=== PATIENT | male | born 1995 | race Two or more races ===

== ENCOUNTER 2021-01-29 08:57 | Inpatient (IN) | payer MEDICAID, OTHER ==
[~2021-01-29] VITALS: Ht 157.5 cm; Wt 122.4 kg
[2021-01-29 10:01] LABS: HEMATOCRIT 44.3 % (41-53); HEMOGLOBIN 14.8 g/dL (13.5-17.5); LYMPHOCYTES # (AUTO) 2.1 K/uL (1.0-4.8); LYMPHOCYTES % (AUTO) 27.2 % (22.0-44.0); MEAN CORPUSCULAR HEMOGLOBIN 30.2 pg (26.0-34.0); MEAN CORPUSCULAR HGB CONC 33.5 G/dL (31.0-37.0); MEAN CORPUSCULAR VOLUME 90 fL (80-100); MONOCYTES # (AUTO) 0.5 K/uL (0.1-1.0); MONOCYTES % (AUTO) 6.9 % (2.0-9.0); NEUTROPHILS % (AUTO) 62.9 % (40.0-70.0); PLATELET COUNT (AUTO) 269 K/uL (150-450); RED BLOOD CELL COUNT(AUTO) 4.91 MIL/uL (4.50-5.90); RED CELL DISTRIBUTION WIDTH 12.8 % (11.5-14.5)
[2021-01-29 10:11] LABS: ANION GAP 7 mmol/L (8-16); CALCIUM, TOTAL 9.3 mg/dL (8.8-10.5); CARBON DIOXIDE 31 mmol/L (22-29); CHLORIDE 105 mmol/L (98-107); CREATININE 0.97 mg/dL (0.60-1.30); GLOMERULAR FILTR. RATE CALC > 60 mL/min (>60); GLUCOSE,RANDOM 98 mg/dL (70-110); POTASSIUM 3.6 mmol/L (3.5-5.1); SODIUM SERUM 143 mmol/L (136-145); UREA NITROGEN, BLOOD 9 mg/dL (7-18)
[2021-01-29 10:17] LABS: ALANINE AMINOTRANSFERASE 21 U/L (12-78); ALKALINE PHOSPHATASE 63 U/L (46-116); ASPARTATE AMINOTRANSFERASE 17 U/L (15-37); BILIRUBIN,TOTAL 0.3 mg/dL (0.1-1.0); TOTAL PROTEIN, SERUM 7.4 g/dL (6.4-8.2)
[2021-01-29 10:47] LABS: COVID AG,FIA SOURCE NASOPHARYNGEAL
[2021-01-29] MEDS ORDERED: LORazepam 1 MG TABLET PO PRN (12:00)
[2021-01-29] MEDS ORDERED: ZOLPIDEM TARTRATE 10 MG TABLET PO PRN (12:00)
[2021-01-29] MEDS ORDERED: ChlorproMAZINE HCL 100 MG TABLET PO PRN ×2 (12:15→22:15)
[2021-01-29] MEDS ORDERED: TraZODone HCL 50 MG TABLET PO PRN (12:15)
[2021-01-29 18:21] VITALS: BP 140/80
[2021-01-29] MEDS ORDERED: PROMETHAZINE HCL 25 MG TABLET PO PRN (20:45)
[2021-01-29] MEDS ORDERED: IBUPROFEN 600 MG TABLET PO PRN (20:45)
[2021-01-29] MEDS ORDERED: TUBERCULIN, PURIFIED PROTEIN DERIVATIVE 5 TU/0.1 ML SYRINGE ID ONE (20:45)
[2021-01-29] MEDS ORDERED: MAGNESIUM HYDROXIDE SUSPENSION 30 ML UDCUP PO PRN (20:45)
[2021-01-29] MEDS ORDERED: MAG HYDROX/AL HYDROX/SIMETH ES 30 ML SUSPENSION UDCUP PO PRN ×2 (20:45)
[2021-01-29] MEDS ORDERED: LOPERAMIDE HCL 2 MG CAPSULE PO PRN (20:45)
[2021-01-29] MEDS ORDERED: HydrOXYzine PAMOATE 50 MG CAPSULE PO PRN ×3 (20:45→22:15)
[2021-01-29] MEDS ORDERED: CloNIDine HCL 0.1 MG TABLET PO PRN (20:45)
[2021-01-29] MEDS ORDERED: ACETAMINOPHEN 325 MG TABLET PO PRN (20:45)
[2021-01-29] MEDS ORDERED: GuaiFENesin/D-METHORPHAN [SUGAR-FREE] 200-20MG/10 ML SYRUP UDCUP PO PRN (20:45)
[2021-01-29 20:46] VITALS: BP 130/80
[2021-01-29] MEDS: MELATONIN 5 MG TABLET PO SCH (21:29)
[2021-01-29 21:46] VITALS: BP 122/70
[2021-01-29 22:06] VITALS: BP 124/77
[2021-01-29] MEDS: CloNIDine HCL 0.1 MG TABLET PO SCH (22:18)
[2021-01-29 22:41] VITALS: BP_SYST 12; BP_SYST 124; BP_DIAS 77
[2021-01-29 23:00] VITALS: BP 127/76
[2021-01-30] VITALS (11 sets, daily range): BP systolic 96–126; BP diastolic 54–81
[2021-01-30] MEDS: CloNIDine HCL 0.1 MG TABLET PO SCH ×4 (06:00→21:23)
[2021-01-30 08:36] LABS: HEMOGLOBIN A1C 5.5 % (3.8-5.6)
[2021-01-30 08:52] LABS: CHOL/HDL RATIO 3.1 (4.2-7.3); FREE T4 (FREE THYROXINE) 0.93 ng/dL (0.76-1.46); THYROID STIMULATING HORMONE 0.28 uIU/mL (0.36-3.74)
[2021-01-30] MEDS: FLUoxetine HCL 20 MG CAPSULE PO SCH (08:58)
[2021-01-30] MEDS: THIAMINE 100 MG TABLET PO SCH ×2 (08:58→16:23)
[2021-01-30] MEDS: ARIPiprazole 5 MG TABLET PO SCH (08:58)
[2021-01-30] MEDS: OMEGA-3/DHA/EPA/FISH OIL 1,000 MG CAPSULE PO SCH (08:58)
[2021-01-30] MEDS: MULTIVITAMINS WITH MINERALS, THERAPEUTIC TABLET PO SCH (08:58)
[2021-01-30] MEDS: FOLIC ACID 1 MG TABLET PO SCH (08:58)
[2021-01-30 10:00] LABS: APPEARANCE,URINE CLEAR (CLEAR); BILIRUBIN,URINE NEGATIVE (NEGATIVE); GLUCOSE, URINE (UA) NEGATIVE (NEGATIVE); KETONES,URINE NEGATIVE (NEGATIVE); LEUKOCYTE ESTERASE ,URINE NEGATIVE (NEGATIVE); NITRATE,URINE NEGATIVE (NEGATIVE); OCCULT BLOOD,URINE NEGATIVE (NEGATIVE); PROTEIN,URINE NEGATIVE (NEGATIVE)
[2021-01-30 10:05] LABS: AMPHET/METH SCREEN,URINE NEGATIVE (NEGATIVE); BARBITURATE SCREEN, URINE NEGATIVE (NEGATIVE); BENZODIAZEPINES SCREEN,URINE NEGATIVE (NEGATIVE); CANNABINOID SCREEN,URINE POSITIVE (NEGATIVE); COCAINE SCREEN,URINE NEGATIVE (NEGATIVE); METHADONE SCREEN, URINE POSITIVE (NEGATIVE); OPIATE SCREEN,URINE NEGATIVE (NEGATIVE)
[2021-01-30 10:09] LABS: PHENCYCLIDINE SCREEN,URINE NEGATIVE (NEGATIVE)
[2021-01-30] MEDS: MELATONIN 5 MG TABLET PO SCH (20:20)
[2021-01-31 05:35] VITALS: BP 121/60
[2021-01-31 05:51] VITALS: BP 96/57
[2021-01-31] MEDS: CloNIDine HCL 0.1 MG TABLET PO SCH ×4 (05:56→21:28)
[2021-01-31] MEDS: OMEGA-3/DHA/EPA/FISH OIL 1,000 MG CAPSULE PO SCH (08:58)
[2021-01-31] MEDS: MULTIVITAMINS WITH MINERALS, THERAPEUTIC TABLET PO SCH (08:58)
[2021-01-31] MEDS: FOLIC ACID 1 MG TABLET PO SCH (08:58)
[2021-01-31] MEDS: FLUoxetine HCL 20 MG CAPSULE PO SCH (08:58)
[2021-01-31] MEDS: ARIPiprazole 5 MG TABLET PO SCH (08:58)
[2021-01-31] MEDS: METHADONE HCL 10 MG TABLET PO SCH (08:59)
[2021-01-31] MEDS: THIAMINE 100 MG TABLET PO SCH ×2 (08:59→16:32)
[2021-01-31 09:39] VITALS: BP_SYST 112; BP_SYST 119; BP_DIAS 67; BP_DIAS 72
[2021-01-31 16:00] VITALS: BP 109/70
[2021-01-31] MEDS: MELATONIN 5 MG TABLET PO SCH (20:35)
[2021-02-01 05:44] VITALS: BP 98/53
[2021-02-01] MEDS: CloNIDine HCL 0.1 MG TABLET PO SCH (06:00)
[2021-02-01] MEDS: THIAMINE 100 MG TABLET PO SCH (09:10)
[2021-02-01] MEDS: MULTIVITAMINS WITH MINERALS, THERAPEUTIC TABLET PO SCH (09:10)
[2021-02-01] MEDS: FOLIC ACID 1 MG TABLET PO SCH (09:10)
[2021-02-01] MEDS: METHADONE HCL 10 MG TABLET PO SCH (09:10)
[2021-02-01] MEDS: FLUoxetine HCL 20 MG CAPSULE PO SCH (09:10)
[2021-02-01] MEDS: ARIPiprazole 5 MG TABLET PO SCH (09:10)
[2021-02-01] MEDS: OMEGA-3/DHA/EPA/FISH OIL 1,000 MG CAPSULE PO SCH (09:10)
[2021-02-01 09:32] VITALS: BP 101/61
[2021-02-01] MEDS ORDERED: FLUO20CA36 PO (10:45)
[2021-02-01] MEDS ORDERED: OMEG-135 PO (10:45)
[2021-02-01] MEDS ORDERED: MELA5TAB40 PO ×2 (10:45→11:10)
[2021-02-01] MEDS ORDERED: ARIP5TAB37 PO (10:45)
[2021-02-01] MEDS ORDERED: FOLI0.4T6 PO (11:09)
[2021-02-01] MEDS ORDERED: THIA100T80 PO (11:10)
== END 2021-02-01 12:00 | disposition home or self-care (01) | DRG 750 ==
LOC: EMS 08:57 → 3EI 18:59
PROVIDERS: ADMIT Psychiatry & Neurology Psychiatry; ATTEND Psychiatry & Neurology Psychiatry
DX: F25.1 Schizoaffective disorder, depressive type (principal); R45.851 Suicidal ideations; F32.9 Major depressive disorder, single episode, unspecified; F17.210 Nicotine dependence, cigarettes, uncomplicated; Z20.822 Contact with and (suspected) exposure to COVID-19; F43.10 Post-traumatic stress disorder, unspecified; Z91.14 Patient's other noncompliance with medication regimen; Z55.9 Problems related to education and literacy, unspecified; Z59.9 Problem related to housing and economic circumstances, unspecified; Z65.3 Problems related to other legal circumstances
CPT/HCPCS: 80053; 80061; 80307; 81003; 83036; 84439; 84443; 85025; 86592; 99285; G0480; Q9967

== ENCOUNTER 2021-08-05 10:01 | Emergency (ER) | payer MEDICAID, OTHER ==
[~2021-08-05] VITALS: Ht 162.6 cm; Wt 63.6 kg
[~2021-08-05 10:01] MED LIST: ARIP5TAB37 PO; FLUO20CA36 PO; FOLI0.4T6 PO; MELA5TAB40 PO; OMEG-108 PO; THIA100T80 PO
[2021-08-05] MEDS ORDERED: ONDANSETRON HCL 4 MG/2 ML VIAL IVP ONE (12:45)
[2021-08-05] MEDS ORDERED: SODIUM CHLORIDE 0.9% 2,000 ML IV ONE (12:45)
[2021-08-05 14:25] LABS: BASOPHILS % (AUTO) 1.2 % (0.0-2.0); EOSINOPHILS % (AUTO) 1.1 % (1.0-6.0); HEMATOCRIT 39.5 % (41-53); HEMOGLOBIN 13.5 g/dL (13.5-17.5); LYMPHOCYTES # (AUTO) 1.9 K/uL (1.0-4.8); LYMPHOCYTES % (AUTO) 26.6 % (22.0-44.0); MEAN CORPUSCULAR HEMOGLOBIN 30.5 pg (26.0-34.0); MEAN CORPUSCULAR HGB CONC 34.1 G/dL (31.0-37.0); MEAN CORPUSCULAR VOLUME 89 fL (80-100); MONOCYTES # (AUTO) 0.5 K/uL (0.1-1.0); NEUTROPHILS # (AUTO) 4.6 K/uL (1.8-7.7); NEUTROPHILS % (AUTO) 64.1 % (40.0-70.0); PLATELET COUNT (AUTO) 282 K/uL (150-450); RED BLOOD CELL COUNT(AUTO) 4.42 MIL/uL (4.50-5.90); RED CELL DISTRIBUTION WIDTH 12.8 % (11.5-14.5)
[2021-08-05 14:33] LABS: ANION GAP 5 mmol/L (8-16); CALCIUM, TOTAL 8.5 mg/dL (8.8-10.5); CARBON DIOXIDE 30 mmol/L (22-29); CHLORIDE 108 mmol/L (98-107); CREATININE 0.87 mg/dL (0.60-1.30); GLOMERULAR FILTR. RATE CALC > 60 mL/min (>60); GLUCOSE,RANDOM 100 mg/dL (70-110); POTASSIUM 3.9 mmol/L (3.5-5.1); SODIUM SERUM 143 mmol/L (136-145); UREA NITROGEN, BLOOD 9 mg/dL (7-18)
[2021-08-05 14:39] LABS: ALANINE AMINOTRANSFERASE 16 U/L (12-78); ALBUMIN 3.1 g/dL (3.4-5.0); ALKALINE PHOSPHATASE 53 U/L (46-116); ASPARTATE AMINOTRANSFERASE 11 U/L (15-37); BILIRUBIN,TOTAL 0.3 mg/dL (0.1-1.0)
[2021-08-05] MEDS ORDERED: BUPRENORPHINE HCL/NALOXONE HCL 8-2 MG SUBLINGUAL TABLET SL ONE (15:45)
[2021-08-05 16:18] LABS: AMPHET/METH SCREEN,URINE NEGATIVE (NEGATIVE); BARBITURATE SCREEN, URINE NEGATIVE (NEGATIVE); BENZODIAZEPINES SCREEN,URINE NEGATIVE (NEGATIVE); CANNABINOID SCREEN,URINE POSITIVE (NEGATIVE); COCAINE SCREEN,URINE NEGATIVE (NEGATIVE); METHADONE SCREEN, URINE NEGATIVE (NEGATIVE); OPIATE SCREEN,URINE NEGATIVE (NEGATIVE)
[2021-08-05 16:19] LABS: PHENCYCLIDINE SCREEN,URINE NEGATIVE (NEGATIVE)
[2021-08-05 16:29] VITALS: BP 106/56
== END 2021-08-05 16:58 | disposition home or self-care (01) ==
LOC: EMS 10:01
DX: F11.20 Opioid dependence, uncomplicated (principal); R11.0 Nausea; R68.83 Chills (without fever); F32.9 Major depressive disorder, single episode, unspecified; F17.210 Nicotine dependence, cigarettes, uncomplicated
CPT/HCPCS: 36415; 80053; 80307; 85025; 96361; 96374; 99285; J2405; J7030